=== PATIENT | male | born 1965 | race Caucasian/White ===

== ENCOUNTER 2025-07-08 21:13 | Emergency (ER) | payer OTHER ==
[~2025-07-08] VITALS: Ht 172.7 cm; Wt 88.5 kg
[2025-07-08 21:14] VITALS: TEMP 98.5
[2025-07-08 23:19] LABS: Chloride 101 mmol/L (98-107); Potassium 3.6 mmol/L (3.5-5.1); Sodium 142 mmol/L (136-145)
[2025-07-08 23:20] LABS: Anion Gap 11 (5-15); Calcium 10.1 mg/dL (8.7-10.4); Carbon Dioxide 30 mmol/L (20-31); Hemoglobin 13.3 g/dL (13.5-17.5); Nucleated Red Blood Cells % 0.0 %
[2025-07-08 23:22] LABS: Hematocrit 37.8 % (41.0-53.0); Mean Corpuscular Hemoglobin 34.8 pg (28.0-32.0); Mean Corpuscular Volume 98.5 fL (80.0-100.0)
--- NOTE | 2025-07-08 23:23 | ED.PDOC ---
Musculoskeletal HPI Comments 59-year-old male who came to ER for lower extremity pain. Patient has a history of gout and thyroid disease. He works as a concrete mixing truck driver. For the past 4 days he has been having right ankle pain and swelling, radiating up his right leg. Denies any recent trauma. Denies any shortness a breath, chest pains, or fever. Chief Complaint: Lower Extremity Time Seen by MD: 23:22 Reviewed Notes: Nurses Notes Allergies: Coded Allergies: NO KNOWN ALLERGIES (Unverified , 07/08/25) Information Source: Patient Mode of Arrival: Wheelchair Location: Right Extremity Location: Ankle Timing: Days Severity: Moderate Able to Move Extremity: Yes Bear Weight: Limited Pain: Moderate Hand Dominance: Right Mechanism: Spontaneous Circumstances: Spontaneous Onset of Symptoms: Spontaneous Symptoms: Swelling, Pain Associated signs and symptoms: Ankle pain (Right) Past Medical History PAST MEDICAL HISTORY: Gout, Thyroid Surgical History: Denies all surgeries Family History Family History: Reviewed,noncontributory to illness Social History Smoker: Non-Smoker Alcohol: Denies ETOH Use Drugs: Denies Drug Use Lives In: Home Constitutional: denies: chills, diaphoresis, fatigue, fever, malaise, sweats, weakness, others EENTM: denies: blurred vision, double vision, ear bleeding, ear discharge, ear drainage, ear pain, ear ringing, eye pain, eye redness, hearing loss, mouth pain, mouth swelling, nasal discharge, nose bleeding, nose congestion, nose pain, photophobia, tearing, throat pain, throat swelling, voice changes, others Respiratory: denies: cough, hemoptysis, orthopnea, SOB at rest, shortness of breath, SOB with excertion, stridor, wheezing, others Cardiovascular: denies: chest pain, dizzy spells, diaphoresis, Dyspnea on exertion, edema, irregular heart beat, left arm pain, lightheadedness, palpitations, PND, syncope, others Gastrointestinal: denies: abdomen distended, abdominal pain, blood streaked bowels, constipated, diarrhea, dysphagia, difficulty swallowing, hematemesis, melena, nausea, poor appetite, poor fluid intake, rectal bleeding, rectal pain, vomiting, others Genitourinary: denies: burning, dysuria, flank pain, frequency, hematuria, incontinence, penile discharge, penile sore, pain, testicle pain, testicle swelling, urgency, others Neurological: denies: dizziness, fainting, headache, left sided numbness, left sided weakness, numbness, paresthesia, pre-existing deficit, right sided numbness, right sided weakness, seizure, speech problems, tingling, tremors, weakness, others Musculoskeletal: reports: joint pain (Right ankle), joint swelling (Right ankle); denies: back pain, gout, muscle pain, muscle stiffness, neck pain, others Integumetry: denies: bruises, change in color, change in hair/nails, dryness, laceration, lesions, lumps, rash, wounds, others Allergic/Immunocompromised: denies: Difficulty Healing, Frequent Infections, Hives, Itching, others Hematologic/Lymphatic: denies: anemia, blood clots, easy bleeding, easy bruising, swollen glands, others Endocrine: denies: excessive hunger, excessive sweating, excessive thirst, excessive urination, flushing, intolerance to cold, intolerance to heat, unexplained weight gain, unexplained weight loss, others Psychiatric: denies: anxiety, bipolar disorder, depression, hopeless, panic disorder, schizophrenia, sleepless, suicidal, others Physical Exam General Appearance: No Apparent Distress, Normal HEENT: Normal ENT Inspection, Pharynx Normal, TMs Normal Neck: Full Range of Motion, Non-Tender, Normal, Normal Inspection Respiratory: Chest Non-Tender, Lungs Clear, No Accessory Muscle Use, No Respiratory Distress, Normal Breath Sounds Cardiovascular: No Edema, No JVD, No Murmur, No Gallop, Normal Peripheral Pulses, Regular Rate/Rhythm Breast Exam: Deferred Gastrointestinal: No Organomegaly, Non Tender, No Pulsatile Mass, Normal Bowel Sounds, Soft Genitalia: Deferred Pelvic: Deferred Rectal: Deferred Extremities: No calf tenderness, Normal capillary refill, Normal range of motion, Non-tender, Swelling (Right ankle) Musculoskeletal : Apperance: Normal Neurologic: Alert, stone polisher machine II-XII nml as Tested, No Motor Deficits, Normal Affect, Normal Mood, No Sensory Deficits Cerebellar Function: Normal Reflexes: Normal Skin: Dry, Normal Color, Warm Lymphatic: No Adenopathy Was a procedure done? Was a procedure done?: No Differential Diagnosis EXT Differential Diagnosis: Cellulitis, CHF, Deep Vein Thrombosis, Sprain, Gout X-Ray, Labs, Meds, VS Vital Signs Date Time Temp Pulse Resp B/P (MAP) Pulse Ox O2 Delivery O2 Flow Rate FiO2 07/08/25 21:14 98.5 89 16 134/90 97 98.5 Lab Test 07/08/25 23:00 Range/Units White Blood Count 12.1 H 4.4-10.8 10^3/uL Red Blood Count 3.84 L 4.5-5.90 10^6/uL Hemoglobin 13.3 L 13.5-17.5 g/dL Hematocrit 37.8 L 41.0-53.0 % Mean Corpuscular Volume 98.5 80.0-100.0 fL Mean Corpuscular Hemoglobin 34.8 H 28.0-32.0 pg Mean Corpuscular Hemoglobin Concent 35.3 32.0-36.0 g/dL Red Cell Distribution Width 13.3 11.8-14.3 % Platelet Count 185 140-450 10^3/uL Mean Platelet Volume 8.1 6.9-10.8 fL Neutrophils (%) (Auto) 66.8 37.0-80.0 % Lymphocytes (%) (Auto) 20.9 10.0-50.0 % Monocytes (%) (Auto) 9.9 0.0-12.0 % Eosinophils (%) (Auto) 2.0 0.0-7.0 % Basophils (%) (Auto) 0.4 0.0-2.0 % Neutrophils # (Auto) 8.1 1.6-8.6 10 ^3/uL Lymphocytes # (Auto) 2.5 0.4-5.4 10 ^3/uL Monocytes # (Auto) 1.2 0-1.3 10 ^3/uL Eosinophils # (Auto) 0.2 0-0.8 10 ^3/uL Basophils # (Auto) 0.1 0-0.2 10 ^3/uL Nucleated Red Blood Cells 0.0 % D-Dimer, Quantitative < 0.19 0.0-0.49 mg/L FEU Sodium Level 142 136-145 mmol/L Potassium Level 3.6 3.5-5.1 mmol/L Chloride Level 101 98-107 mmol/L Carbon Dioxide Level 30 20-31 mmol/L Anion Gap 11 5-15 Blood Urea Nitrogen 20 9-23 mg/dL Creatinine 1.40 H 0.700-1.30 mg/dL Glomerular Filtration Rate Calc 59 >90 mL/min BUN/Creatinine Ratio 14.3 10.0-20.0 Serum Glucose 126 H 74-106 mg/dL Calcium Level 10.1 8.7-10.4 mg/dL Right lower extremity venous duplex Clinical History: right leg pain Comparison: None Technique: Duplex Doppler evaluation of the deep venous system of the right lower extremity from the common femoral vein to the popliteal vein including color Doppler and spectral/pulsed waveform analysis was performed. Findings: The common femoral vein demonstrates appropriate compressibility and waveform variability. There is compressibility/patency of the great saphenous vein at the proximal thigh. The femoral vein demonstrates appropriate compressibility and waveform variability. The deep femoral vein demonstrates appropriate compressibility and waveform variability. The popliteal vein demonstrates appropriate compressibility and waveform variability. There is normal compressibility at the tibioperoneal trunk. Impression: 1. No right femoropopliteal venous thrombosis. 2. Contralateral common femoral vein is patent. Time of 1ST Reevaluation: 23:20 Reevaluation 1ST: Unchanged Patient Education/Counseling: Diagnosis, Treatment Family Education/Counseling: Diagnosis, Treatment Departure 1 Departure Time of Disposition: 01:46 (Patient's ultrasound and labs are benign. We will discharge patient home with outpatient follow up) Impression: Primary Impression: Muscle strain of right lower leg Disposition: 01 HOME / SELF CARE / HOMELESS Condition: Stable Additional Instructions: Your ultrasound and labs are benign. You do not have a blood clot. You likely strained your muscles. For pain you can take the followinam: Ibuprofen 400mg with food Noon: Acetaminophen 1000mg 4pm: Ibuprofen 400mg with food 8pm: Acetaminophen 1000mg You should follow up with your regular doctor within one week to ensure you are doing better. If your symptoms worsen or you have any other concerns then please return to the ER. Discharged With: Self Critical Care Note Critical Care Time?: No Stability Stability form required: No Heart Score Heart Score: Heart Score Response (Comments) Value History N/A 0 EKG N/A 0 Age N/A 0 Risk Factors N/A 0 Troponin N/A 0 Total 0 I personally scribed for DELANO LOOMIS MD ([email or web address]) on 07/08/25 at 23:23. Electronically submitted by Lee Gerard ([facility] I personally scribed for DELANO LOOMIS MD ([email or web address]) on 07/09/25 at 00:40. Electronically submitted by Lee Gerard ([facility]). DELANO LOOMIS MD Jul 08, 2025 23:23
[2025-07-08 23:25] LABS: BUN/Creatinine Ratio 14.3 (10.0-20.0); Blood Urea Nitrogen 20 mg/dL (9-23)
[2025-07-08 23:26] LABS: Glucose 126 mg/dL (74-106)
--- NOTE | 2025-07-08 23:29 | DVH ---
Right lower extremity venous duplex Clinical History: right leg pain Comparison: None Technique: Duplex Doppler evaluation of the deep venous system of the right lower extremity from the common femo ral vein to the popliteal vein including color Doppler and spectral/pulsed waveform analysis was perf ormed. Findings: The common femoral vein demonstrates appropriate compressibility and waveform variability. There is compressibility/patency of the great saphenous vein at the proximal thigh. The femoral vein demonstrates appropriate compressibility and waveform variability. The deep femoral vein demonstrates appropriate compressibility and waveform variability. The popliteal vein demonstrates appropriate compressibility and waveform variability. There is normal compressibility at the tibioperoneal trunk. Impression: 1. No right femoropopliteal venous thrombosis. 2. Contralateral common femoral vein is patent.
[2025-07-09] MEDS: HYDROcodone-ACET 5/325MG TAB PO ONE (02:13)
--- NOTE | 2025-07-09 03:44 | DVH ---
CLINICAL INDICATION: ankle pain TECHNIQUE: XY R ANKLE 2 VIEW XRAY Comparison: None FINDINGS/IMPRESSION: : There is no evidence of acute fracture or dislocation. Mild lateral malleolar soft tissue swelling. Soft tissues are otherwise unremarkable.
--- NOTE | 2025-07-09 04:15 | ED.PDOC ---
Departure 1 Departure Time of Disposition: 145 Impression: Primary Impression: Muscle strain of right lower leg Additional Impression: Ankle sprain Disposition: HOME / SELF CARE Condition: Stable Referrals: AVELINO THOMAS MD Additional Instructions: Your ultrasound and labs are benign. You do not have a blood clot. You likely strained your muscles. For pain you can take the followinam: Ibuprofen 400mg with food Noon: Acetaminophen 1000mg 4pm: Ibuprofen 400mg with food 8pm: Acetaminophen 1000mg You may have sprained your ankle. Fortunately it is not broken on X-ray today. A sprain can hurt as much as a brake but heals much faster. You can ice your ankle as needed for pain. You can bryan wrap your ankle as needed for pain. You can use crutches as needed. You were referred to our orthopedic surgeon to ensure you are healing well. Please call for an appointment within one week. If your symptoms worsen or you have any other concerns then please return to the ER. Discharged With: Self DELANO LOOMIS MD Jul 09, 2025 04:15
[2025-07-09 04:40] VITALS: BP 138/92; PULSE 81; RESP 18; O2SAT 98
== END 2025-07-09 04:47 | disposition home or self-care (01) ==
LOC: ER 21:13
DX: S96.811A Strain of other specified muscles and tendons at ankle and foot level, right foot, initial encounter (principal); E03.9 Hypothyroidism, unspecified; M10.9 Gout, unspecified; X58.XXXA Exposure to other specified factors, initial encounter; Y93.89 Activity, other specified; Y92.89 Other specified places as the place of occurrence of the external cause; Y99.8 Other external cause status
CPT/HCPCS: 36415; 73600; 80048; 85025; 85379; 93971